=== PATIENT | female | born 1980 ===

== ENCOUNTER 2018-07-02 07:10 | Day surgery (SDC) | payer BC ==
[~2018-07-02 07:10] MED LIST: DIAZ5 PO; Naproxen500 MG PO; Percocet 5-3251 EACH PO
== END 2018-07-02 22:39 | disposition home or self-care (01) ==
LOC: MOI MAM 07:10
PROC: 0HBU3ZX Excision of Left Breast, Percutaneous Approach, Diagnostic (ICD-10-PCS; principal; 2018-07-02)
DX: N60.32 Fibrosclerosis of left breast (principal)
CPT/HCPCS: 19083; 77065; A4648; G0279

== ENCOUNTER → 2019-08-20 | Outpatient (CLI) | payer BC | END | disposition home or self-care (01) | LOC: LAB SHORT 12:16 → PLD 12:16 | DX: D22.4 Melanocytic nevi of scalp and neck (principal) | CPT/HCPCS: 88305 ==